=== PATIENT | female | born 1940 | race Caucasian/White ===

== ENCOUNTER 2016-12-31 10:37 | Emergency (ER) | payer MEDICARE ==
[2016-12-31 11:07] VITALS: BP 130/72
[2016-12-31] MEDS ORDERED: Ibuprofen TAB* 400 MG PO ONE (11:22)
--- NOTE | 2016-12-31 11:49 | UC ---
Hand/Wrist HPI - HPI Summary HPI Summary: Woke up with L hand/wrist pain 2 days ago. Denies any falls or injuries. 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 Pain radiates from hand up wrist and into shoulder. Has had numbness in hand, now mostly pain , especially with hand pronation/supination. - History Of Current Complaint Chief Complaint: UCUpperExtremity Stated Complaint: LEFT WRIST PAIN Time Seen by Provider: 12/31/16 11:13 Hx Obtained From: Patient Hx Last Menstrual Period: n/a ?: No Onset/Duration: Sudden Onset Severity Initially: Moderate Severity Currently: Moderate - [id number] Character Of Pain: Dull, Aching Aggravating Factor(s): Movement, Internal/External Rotation Related History: Dominant Hand Right - Allergies/Home Medications Allergies/Adverse Reactions: Allergies Allergy/AdvReac Type Severity Reaction Status Date / Time Iodinated Contrast Media Allergy Severe Body Verified 12/31/16 11:07 [CONTRAST DYE] warmth, and redness Penicillins Allergy Unknown puritis, Verified 12/31/16 11:07 rash Ciprofloxacin AdvReac Intermediate Diarrhea Verified 12/31/16 11:07 Home Medications: Home Medications Sulfamethox/Trimethoprim DS* [Bactrim DS 800/160 TAB*] 1 tab PO DAILY 12/31/16 [ History Confirmed 12/31/16] PMH/Surg Hx/FS Hx/Imm Hx Endocrine History Of: Reports: Dyslipidemia Denies: Diabetes, Thyroid Disease, Hyperthyroidism, Hypothyroidism Cardiovascular History Of: Reports: Hypertension Denies: Cardiac Disorders, Pacemaker/ICD, Myocardial Infarction, Congestive Heart Failure, Atrial Fibrillation, Deep Vein Thrombosis, Bleeding Disorders Respiratory History Of: Denies: COPD, Asthma, Bronchitis, Pneumonia, Pulmonary Embolism GI/ History Of: Denies: Gastroesophageal Reflux, Ulcer, Gastrointestinal Bleed, Gall Bladder Disease, Kidney Stones, Diverticulitis, Renal Disease, Urosepsis Neurological History Of: Denies: TIA, CVA, Dementia, Seizures, Migraine Psychological History Of: Denies: Anxiety, Depression, Bipolar Disorder, Schizophrenia, Post Traumatic Stress Disorder Cancer History Of: Denies: Lung Cancer, Colorectal Cancer, Breast Cancer, Prostate Cancer, Cervical Cancer Other History Of: Negative For: HIV, Hepatitis B, Hepatitis C - Surgical History Surgical History: Yes Surgery Procedure, Year, and Place: Galbladder removed, B/L knee replacement,B/ L breast reduction,D&C,B/L laser eye surgery. Right shoulder surgery 2016 - Family History Known Family History: Positive: Cardiac Disease - Social History Occupation: Retired Alcohol Use: None Substance Use Type: None Smoking Status (MU): Never Smoked Tobacco Review of Systems Constitutional: Negative Skin: Negative Eyes: Negative ENT: Negative Respiratory: Negative Cardiovascular: Negative Gastrointestinal: Negative Genitourinary: Negative Motor: Weakness Neurovascular: Negative Musculoskeletal: Negative Neurological: Paresthesia, Numbness Psychological: Negative All Other Systems Reviewed And Are Negative: Yes Physical Exam Triage Information Reviewed: Yes Appearance: Well-Nourished, Pain Distress - with any LUE movement Vital Signs: Initial Vital Signs Temp 97.9 F 12/31/16 10:58 Pulse 70 12/31/16 10:58 Resp 16 12/31/16 10:58 BP 130/72 12/31/16 10:58 Pulse Ox 96 12/31/16 10:58 Vital Signs Reviewed: Yes Eye Exam: Normal Eyes: Positive: Conjunctiva Clear ENT Exam: Normal ENT: Positive: Normal ENT inspection, Hearing grossly normal, Pharynx normal, TMs normal Neck exam: Normal Neck: Positive: Supple, Nontender, No Lymphadenopathy Respiratory Exam: Normal Respiratory: Positive: Chest non-tender, Lungs clear, Normal breath sounds, No respiratory distress, No accessory muscle use Cardiovascular Exam: Normal Cardiovascular: Positive: RRR, No Murmur Musculoskeletal: Positive: 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 Negative Spurling test. Neurological Exam: Normal Neurological: Positive: Alert Psychological Exam: Normal Skin Exam: Normal Hand/Wrist Course/Dx - Differential Dx/Diagnosis Provider Diagnoses: L wrist pain. Elevated blood pressure due to pain Discharge - Discharge Plan Condition: Stable Disposition: HOME Patient Education Materials: Paresthesia (ED), Carpal Tunnel Syndrome (ED) Referrals: Sheree Benavidez MD [Medical Doctor] - Denton Nicolas MD [Primary Care Provider] - 2 Weeks Additional Instructions: Arrange for follow-up care as soon as you can get an appointment. You can call [phone] to make an appointment in [place] (as opposed to driving down to [place]). Avoid activities that worsen you pain.
--- NOTE | 2016-12-31 12:00 | RAD ---
INDICATION: Left wrist pain. No known trauma COMPARISON: None TECHNIQUE: AP, lateral, and oblique views were obtained. FINDINGS: There are no acute bony findings. There is an apparent old fracture of the ulnar aspect of the distal radius. 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 There is minor widening of the scapholunate space suggesting scapholunate ligamentous injury. There is mild soft tissue swelling over the dorsum of the wrist. IMPRESSION: DEGENERATIVE AND/OR POST TRAUMATIC CHANGES DESCRIBED. MILD SCAPHOLUNATE WIDENING.
== END 2016-12-31 12:30 | disposition home or self-care (01) ==
LOC: UCCORT 10:37
DX: M25.532 Pain in left wrist (principal); R03.0 Elevated blood-pressure reading, without diagnosis of hypertension; E78.5 Hyperlipidemia, unspecified; I10 Essential (primary) hypertension; Z96.653 Presence of artificial knee joint, bilateral; Z90.49 Acquired absence of other specified parts of digestive tract; Z91.041 Radiographic dye allergy status; Z88.1 Allergy status to other antibiotic agents; Z88.0 Allergy status to penicillin
CPT/HCPCS: 99212; A9270-GY; G0463